=== PATIENT | female | born 1955 | race Two or more races ===

== ENCOUNTER 2018-08-06 13:09 | Emergency (ER) | payer MEDICARE, MEDICAID ==
[~2018-08-06] VITALS: Ht 152.4 cm; Wt 86.4 kg
[2018-08-06] MEDS ORDERED: ASPI81 PO (13:19)
[2018-08-06] MEDS ORDERED: METF-960 PO (13:19)
[2018-08-06] MEDS ORDERED: KETOROLAC TROMETHAMINE 10 MG TABLET PO ONE (17:45)
[2018-08-06] MEDS ORDERED: METHOCARBAMOL 500 MG TABLET PO ONE (17:45)
[2018-08-06 19:30] VITALS: BP 141/74
== END 2018-08-06 20:38 | disposition home or self-care (01) ==
LOC: EMS 13:10
DX: S50.02XA Contusion of left elbow, initial encounter (principal); S80.02XA Contusion of left knee, initial encounter; E11.65 Type 2 diabetes mellitus with hyperglycemia; I10 Essential (primary) hypertension; Z79.82 Long term (current) use of aspirin; Z79.84 Long term (current) use of oral hypoglycemic drugs; W19.XXXA Unspecified fall, initial encounter; Y93.89 Activity, other specified; Y92.89 Other specified places as the place of occurrence of the external cause; Y99.8 Other external cause status